=== PATIENT | male | born 1970 | race Caucasian/White ===

== ENCOUNTER 2017-08-29 13:27 | Emergency (ER) | payer SELFPAY ==
[2017-08-29] MEDS ORDERED: Acetaminophen/oxyCODONE 325-5 MG Tab PO ONE (14:20)
--- NOTE | 2017-08-29 15:54 | EDM.PDOC ---
ED HPI GENERAL MEDICAL PROBLEM - General Chief Complaint: Lower Extremity Injury/Pain Stated Complaint: LT ANKLE INJURY Time Seen by Provider: 08/29/17 14:16 Source of Information: Reports: Patient, RN Notes Reviewed - History of Present Illness INITIAL COMMENTS - FREE TEXT/NARRATIVE: 46-year-old male suffered a left ankle injury about 2 hours ago. Off the trailer , twisted the ankle, felt a pop and has had subsequent pain swelling, difficulty with weightbearing after ankle. No other pain or injury from this incident. 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 [No Known Home Meds] 08/29/17 [History] Past Medical History Oncologic (Cancer) History: Reports: Lung, Renal Other Oncologic History: has only one partial kidney Social & Family History - Tobacco Use Smoking Status *Q: Former Smoker Used Tobacco, but Quit: No Review of Systems - Review of Systems Review Of Systems: See Below Constitutional: Reports: No Symptoms Mouth/Throat: Reports: No Symptoms Respiratory: Denies: Shortness of Breath Cardiovascular: Denies: Chest Pain GI/Abdominal: Denies: Nausea, Vomiting Musculoskeletal: Reports: Joint Pain Skin: Reports: No Symptoms (Left ankle) Neurological: Denies: Numbness, Tingling ED EXAM, GENERAL - Physical Exam Exam: See Below General Appearance: Alert, Moderate Distress Head: Atraumatic Neck: Supple, Full Range of Motion Respiratory/Chest: No Respiratory Distress, Lungs Clear Extremities: Joint Swelling (Left ankle with moderate to tenderness medially and laterally, pain with motion, no visible deformity, leg and foot otherwise nontender) Neurological: Alert, Oriented, No Motor/Sensory Deficits Skin Exam: Warm, Dry, Normal Color Course - Vital Signs Last Recorded V/S: Last Vital Signs Temp 97.1 F 08/29/17 14:01 Pulse 86 08/29/17 14:01 Resp BP 101/73 08/29/17 14:01 Pulse Ox 96 08/29/17 14:01 - Orders/Labs/Meds Orders: Active Orders 24 hr Category Date Time Status Ankle Min 3V Lt [CR] Stat Exams 08/29/17 14:20 Taken Meds: Medications Discontinued Medications Generic Name Dose Route Start Last Admin Trade Name Alfred PRN Reason Stop Dose Admin Oxycodone/Acetaminophen 1 tab 08/29/17 14:20 08/29/17 14:32 Percocet 325-5 Mg PO 08/29/17 14:21 1 tab ONETIME ONE Administration - Re-Assessments/Exams Free Text/Narrative Re-Assessment/Exam: 08/29/17 20:16 X-rays of ankle surprisingly show no fracture, I've offered to splint the ankle but he would prefer to just go ahead and Cecilio wrap for now. He will Need crutches , discharge instructions as documented. Departure - Departure Time of Disposition: 15:53 Disposition: Home, Self-Care 01 Condition: Fair Clinical Impression: Ankle sprain Qualifiers: Encounter type: initial encounter Involved ligament of ankle: unspecified ligament Laterality: left Qualified Code(s): S93.402A - Sprain of unspecified ligament of left ankle, initial encounter - Discharge Information Instructions: Ankle Sprain Referrals: PCP,None [Primary Care Provider] - Forms: ED Department Discharge Additional Instructions: Cecilio wrap, crutches, no weightbearing until pain resolving, accident elevation as needed for swelling, and all 3-4 times daily as needed for discomfort, up with your regular medical provider in about 3-4 days for recheck, call for appointment. - My Orders Last 24 Hours: My Active Orders 08/29/17 14:20 Ankle Min 3V Lt [CR] Stat - Assessment/Plan Last 24 Hours: My Active Orders 08/29/17 14:20 Ankle Min 3V Lt [CR] Stat
--- NOTE | 2017-08-30 08:18 | CR ---
Left ankle: Four views of the left ankle were obtained. Soft tissue swelling is identified. Ankle mortise is symmetric. No acute fracture or other bony abnormality is seen. Small plantar spur is seen. Impression: 1. Soft tissue swelling. No acute bony abnormality is seen. 2. Plantar spur is incidentally noted. Diagnostic code #2
== END 2017-08-29 16:02 | disposition home or self-care (01) ==
LOC: JD.ED 13:27
DX: S93.402A Sprain of unspecified ligament of left ankle, initial encounter (principal); Z87.891 Personal history of nicotine dependence; X50.1XXA Overexertion from prolonged static or awkward postures, initial encounter
CPT/HCPCS: 73610; 99283; A9270